=== PATIENT | female | born 1955 | race Caucasian/White ===

== ENCOUNTER 2024-04-14 07:24 | Day surgery (SDC) | payer MEDICARE ==
[2024-04-14] MEDS: Lactated Ringers 1,000 ML IV SCH (07:45)
[2024-04-14] MEDS ORDERED: Midazolam 1 MG/ML 2 ML SDV ONE (08:11)
[2024-04-14] MEDS ORDERED: fentaNYL 50 MCG/ML SDV ONE (08:11)
[2024-04-14] MEDS ORDERED: Propofol 200 MG/20 ML SDV ONE ×2 (08:12→08:58)
[2024-04-14 10:16] VITALS: BP 152/80; PULSE 74
== END 2024-04-14 10:30 | disposition home or self-care (01) ==
LOC: JP.SDS 07:24
PROVIDERS: ATTEND Surgery
DX: Z12.11 Encounter for screening for malignant neoplasm of colon (principal); D12.8 Benign neoplasm of rectum; R19.5 Other fecal abnormalities; E78.5 Hyperlipidemia, unspecified
CPT/HCPCS: 00811; 45385; J2250; J2704; J3010; J7120; 88305